=== PATIENT | male | born 1995 | race Caucasian/White ===

== ENCOUNTER 2016-10-31 21:52 | Emergency (ER) | payer SELFPAY ==
[2016-10-31 22:06] VITALS: BP 150/77
--- NOTE | 2016-10-31 22:18 | ERNOTE ---
Lower Extremity HPI - General Time Seen by Provider: 10/31/16 22:09 Source: patient Exam Limitations: no limitations - Immun/Allergies/Home Medications Immunizations: IMMUNIZATION HX Immunizations Up to Date Yes History of Influenza Vaccine No Hx Pneumococcal Vaccination No Allergies/Adverse Reactions: Allergies Allergy/AdvReac Type Severity Reaction Status Date / Time No Known Allergies Allergy Verified 10/31/16 22:06 Home Medications: HOME MEDICATIONS Naproxen [Naprosyn] 500 mg PO BID PRN #30 tablet 10/31/16 [Last Taken Unknown] - History of Present Illness Narrative: Here for bilateral knee pain for two years. No history of recent trauma per patient Review of Systems - Review of Systems Constitutional: Present: no symptoms reported EYE: Present: no symptoms reported ENT: Present: no symptoms reported Respiratory: Present: no symptoms reported Cardiology: Present: no symptoms reported Gastrointestinal/Abdominal: Present: no symptoms reported Musculoskeletal: Present: See HPI - Patient's Past Medical History Patient History - Medical: Chronic Pain Patient History - Cardiac/Respiratory: No pertinent hx Patient History - Cancer: No Hx of Cancer Patient History - Surgical Procedures: No surgical history Patient History - Other: None - Social History Living Situations: other Abuse History: No History of abuse Psych History: Hx of Depression Smoking Status: Current every day smoker Have you smoked in the past 12 months: Yes Do you dip or chew tobacco: No Alcohol Use: occasionally Drug Use: none - Immunizations Immunizations Up to Date: Yes Hx Pneumococcal Vaccination: No History of Influenza Vaccine: No Physical Exam - Physical Exam General Appearance: Present: wd/wn, alert, no apparent distress Respiratory: Present: no respiratory distress, normal breath sounds, no accessory muscle use, chest nontender, lungs clear Cardiovascular/Chest: Present: regular rate, rhythm, no murmur, normal peripheral pulses Extremity Exam: Present: normal inspection, other - completely normal knee exam Neurological Exam: Present: alert, oriented, normal mood/affect, no motor/ sensory deficits ED Progress - Vital Signs Patient's Vital Signs:: I have reviewed the patient's vital signs. Vital Signs: Vital Signs 10/31/16 21:58 Temperature 36.6 C Pulse Rate 98 Respiratory 14 Rate Blood Pressure 150/77 O2 Sat by Pulse 96 Oximetry - Progress/Reassessment Chief Complaint: Lower Extremity Pain/ Injury Plan - Plan Plan: exam is completely normal. This patient has chronic knee pain and needs to see pain management or PCP or ortho. Departure Clinical Impression: Chronic pain Qualifiers: Chronic pain type: other chronic pain Qualified Code(s): G89.29 - Other chronic pain - Departure Disposition: Home self-care Condition: Good Instructions: Chronic Pain Additional Instructions: please follow up with your PCP for further treatment Prescriptions: Naproxen [Naprosyn] 500 mg PO BID PRN #30 tablet PRN Reason: Pain
[2016-10-31] MEDS ORDERED: NAPROXEN SODIUM 550 MG TABLET PO ONE (22:19)
[2016-10-31] MEDS ORDERED: NAPROXEN SODIUM 550 MG TABLET ONE (22:20)
== END 2016-10-31 22:31 | disposition home or self-care (01) ==
LOC: ER 21:52
DX: G89.29 Other chronic pain (principal)